=== PATIENT | female | born 1975 | race Caucasian/White ===

== ENCOUNTER 2018-04-05 09:55 | Inpatient (IN) | payer BC, MEDICAID ==
[~2018-04-05] VITALS: Ht 152.4 cm; Wt 79.5 kg
[2018-04-05] MEDS ORDERED: KETOROLAC 30 MG INJ IV STA (11:30)
[2018-04-05] MEDS ORDERED: SOD CHLORIDE 0.9% 1,000 ML IV STA (11:30)
--- NOTE | 2018-04-05 11:34 | EN ---
Date/Time of Note Date/Time of Note DATE: 04/05/18 TIME: 11:27 ER Progress Note Observation Note Subjective: This patient was evaluated by myself in conjunction with the PA. Briefly, this is a 42-year-old female presenting with right upper quadrant pain for a few days. The patient was found to have cholecystitis. Family history: As indicated on the initial history and physical of this ER visit Objective: Vital signs reviewed Const: No apparent distress, well-developed, well-nourished Head: Normocephalic, Atraumatic Eyes: Normal Conjunctiva. ENT: Normal External Ears, Nose and Mouth. Neck: No meningismus. Resp: Symmetric chest wall ramirez, no audible wheezes Cardio: Regular rate Abd: No abdominal distension Skin: No petechiae or rashes Ext: No cyanosis, or edema Neur: Awake. No facial droop. Normal strength and sensation. Assessment: Cholecystitis MDM The patient's presentation warrants further investigation. Previous medical records, if available, were reviewed. LABS The patient's laboratory testing was obtained and reviewed. No emergent treatment was required unless described below. CBC: Leukocytosis, concerning for an infectious etiology. No anemia or thrombocytopenia. CMP: No E/o severe acidosis or alkalosis or renal failure or liver disease or diabetic ketoacidosis Lipase: No E/o pancreatitis IMAGING Imaging and Radiology interpretation reviewed. US GB FINDINGS: Pancreas: The head and body of the pancreas are unremarkable. Tail is obscured by shadowing bowel gas. Liver: Liver demonstrates normal size and echotexture. No parenchymal lesions are identified. Normal directional flow toward the liver is demonstrated in the main portal vein. Gallbladder: Multiple echogenic gallstones, including a non mobile stone within the neck of the gallbladder. The gallbladder wall measures 5 mm thickness. Business Administration Professor reports positive Chisholm's sign. There is trace pericholecystic fluid. Biliary system: No significant dilatation of the intrahepatic or extrahepatic biliary system. Common bile duct measures 4 mm. Right Kidney: Measures 10.6 cm in length. No hydronephrosis, intrarenal calcification or parenchymal lesion. No visible perinephric fluid. IMPRESSION: Cholelithiasis and non mobile stone within the neck of the gallbladder. Mild wall thickening, trace pericholecystic fluid and focal tenderness consistent with acute cholecystitis. Electronically viewed and signed by Physician Xochitl on 04/05/2018 11:01 TREATMENT/DISPOSITION The patient presents for acute cholecystitis. The patient was given Zosyn in the emergency department. The patient does have a leukocytosis, but her vital signs are stable. She does not meet criteria for systemic inflammatory response syndrome. I have low suspicion for endorgan damage. I do not believe the patient is septic and I do not feel that a full septic workup is required. At this time, I feel that the patient requires admission for further evaluation and management. The patient will be admitted to Panel in accordance with the patient's insurance. The patient was accepted by Dr. Henry at 1415PM on 04/05/2018. The on-call general surgeon, Dr. Weaver, was consulted on the case. The patient will be evaluated for likely operative intervention. Please see PA note for further detail. Disclaimer: Inadvertent spelling and grammatical errors are likely due to EHR/dictation software use and do not reflect on the overall quality of patient care. Note that the electronic time recorded on this note does not necessarily reflect the actual time of the patient encounter. JOSEFINA LEWIS MD Apr 05, 2018 11:34
[2018-04-05] MEDS ORDERED: PIPER-TAZO 3.375 GM IV (PMX) 100 ML IVPB ONE (12:00)
[2018-04-05] MEDS ORDERED: ONDANSETRON 4 MG INJ IV PRN (14:30)
[2018-04-05] MEDS ORDERED: ACETAMINOPHEN 325 MG TAB PO PRN (14:30)
[2018-04-05] MEDS ORDERED: morphine 2 MG INJ IV PRN (15:00)
[2018-04-05] MEDS ORDERED: NACL 0.9% 3 ML SYG IV SCH (15:00)
--- NOTE | 2018-04-05 15:11 | ERD ---
ER Documentation Chief Complaint Chief Complaint NAUSEA AND VOMITING, ABD PAIN X2 DAYS HPI 42-year-old female presenting with nausea and vomiting and epigastric abdominal pain times 2 days. Patient has no fevers. She is never had this pain before. Denies any chest pain or shortness of breath. Has not taken medications for symptoms. Medical history: Schizophrenia. Surgical history left eye surgery. NKDA. Social history denies ROS All systems reviewed and are negative except as per history of present illness. Allergies Allergies: Coded Allergies: No Known Allergy (Unverified , 01/31/14) PMhx/Soc Medical and Surgical Hx: pt denies Medical Hx, pt denies Surgical Hx Hx Psychiatric Problems: Yes (UNKNOWN) Hx Alcohol Use: No Hx Substance Use: No Hx Tobacco Use: No FmHx Family History: No diabetes, No coronary disease, No other Physical Exam Vitals Vital Signs Date Temp Pulse Resp B/P (MAP) Pulse Ox O2 O2 Flow FiO2 Time Delivery Rate 04/05/18 98.5 96 18 142/65 100 09:56 (90) Physical Exam GENERAL: The patient is well-appearing, well-nourished, in no acute distress HEENT: Atraumatic. Conjunctivae are pink. Pupils equal, round, and reactive to light. There is no scleral icterus. Tympanic membranes clear bilaterally. Oropharynx clear. NECK: C-spine is soft and supple. There is no meningismus. There is no cervical lymphadenopathy. CHEST: Clear to auscultation bilaterally. There are no rales, wheezes or rhonchi. HEART: Regular rate and rhythm. No murmurs, clicks, rubs or gallops. ABDOMEN: Normal active bowel sounds. No distention. No organomegaly. Tender to palpation in epigastric region. Result Diagram: 04/05/18 1026 04/05/18 1026 Results 24 hrs Laboratory Tests Test 04/05/18 10:15 04/05/18 10:26 04/05/18 10:34 Urine Color YELLOW Urine Clarity SLIGHTLY CLOUDY Urine pH 7.0 Urine Specific [place] 1.018 Urine Ketones TRACE mg/dL Urine Nitrite NEGATIVE mg/dL Urine Bilirubin NEGATIVE mg/dL Urine Urobilinogen NEGATIVE mg/dL Urine Leukocyte Esterase NEGATIVE Jill/ul Urine Microscopic RBC 1 /HPF Urine Microscopic WBC 2 /HPF Urine Squamous Epithelial Cells FEW /HPF Urine Bacteria FEW /HPF Urine Mucus FEW /HPF Urine Hemoglobin NEGATIVE mg/dL Urine Glucose 1+ mg/dL Urine Total Protein NEGATIVE mg/dl White Blood Count 14.9 10^3/ul Red Blood Count 4.54 10^6/ul Hemoglobin 13.3 g/dl Hematocrit 41.0 % Mean Corpuscular Volume 90.3 fl Mean Corpuscular Hemoglobin 29.3 pg Mean Corpuscular 32.4 g/dl Hemoglobin Concent Red Cell Distribution Width 13.3 % Platelet Count 264 10^3/UL Mean Platelet Volume 11.5 fl Immature Granulocytes % 0.500 % Neutrophils % 88.5 % Lymphocytes % 6.9 % Monocytes % 4.0 % Eosinophils % 0.0 % Basophils % 0.1 % Nucleated Red Blood Cells % 0.0 /100WBC Immature Granulocytes # 0.070 10^3/ul Neutrophils # 13.2 10^3/ul Lymphocytes # 1.0 10^3/ul Monocytes # 0.6 10^3/ul Eosinophils # 0.0 10^3/ul Basophils # 0.0 10^3/ul Nucleated Red Blood Cells # 0.0 10^3/ul Sodium Level 143 mmol/L Potassium Level 3.5 mmol/L Chloride Level 105 mmol/L Carbon Dioxide Level 23 mmol/L Anion Gap 15 Blood Urea Nitrogen 15 mg/dl Creatinine 0.60 mg/dl Est Glomerular Filtrat > 60 mL/min Rate mL/min Glucose Level 137 mg/dl Calcium Level 10.2 mg/dl Total Bilirubin 0.2 mg/dl Direct Bilirubin 0.00 mg/dl Indirect Bilirubin 0.2 mg/dl Aspartate Amino 37 IU/L Transf (AST/SGOT) Alanine 25 IU/L Aminotransferase (ALT/SGPT) Alkaline Phosphatase 83 IU/L Total Protein 8.9 g/dl Albumin 5.2 g/dl Globulin 3.70 g/dl Albumin/Globulin Ratio 1.40 Lipase 61 U/L POC Beta HCG, Qualitative NEGATIVE Current Medications Medications Dose Sig/Martin Start Time Status Last (Trade) Ordered Route PRN Stop Time Admin Dose Reason Admin Sodium 1,000 ml @ Q1H STAT 04/05/18 DC 04/05/18 Chloride 1,000 mls/hr IV 11:30 11:40 04/05/18 12:29 Ketorolac 30 mg ONCE STAT 04/05/18 DC 04/05/18 Tromethamine IV 11:30 11:40 (Toradol) 04/05/18 11:31 Piperacillin 100 ml @ ONCE ONCE 04/05/18 DC 04/05/18 Sod/ 200 mls/hr IVPB 12:00 11:40 Tazobactam 04/05/18 12:29 Sod Ondansetron 4 mg BRIDGE ORDER 04/05/18 HCl (Zofran PRN IV 14:30 Inj) NAUSEA/VOMITI 04/06/18 14:29 NG 650 mg ER BRIDGE 04/05/18 Acetaminophen PRN PO 14:30 (Tylenol .MILD PAIN 04/06/18 14:29 Tab) 1-3 OR TEMP Sodium 1,000 ml @ Q8H IV 04/05/18 UNV Chloride 125 mls/hr 15:00 IV Flush 3 ml PER 04/05/18 UNV (NS 3 ml) PROTOCOL IV 15:00 Morphine 2 mg Q4H PRN 04/05/18 UNV Sulfate IV .SEVERE 15:00 (morphine) PAIN 7-10 Piperacillin 100 ml @ 04/05/18 UNV Sod/ 25 mls/hr TID@, 18:00 Tazobactam IVPB Sod Procedures/MDM DIAGNOSTIC IMAGING REPORT Patient: NIDHI HOOK : 1975 Age: 42 Sex: F MR #: [id number] DOS: 04/05/18 1015 Ordering MD: IRMA VILLALPANDO PA-C Location: [facility] Room/Bed: PROCEDURE: Ultrasound gallbladder CLINICAL INDICATION: abdominal pain TECHNIQUE: Manning scale, color flow and Doppler ultrasound images of the abdomen. COMPARISON: None FINDINGS: Pancreas: The head and body of the pancreas are unremarkable. Tail is obscured by shadowing bowel gas. Liver: Liver demonstrates normal size and echotexture. No parenchymal lesions are identified. Normal directional flow toward the liver is demonstrated in the main portal vein. Gallbladder: Multiple echogenic gallstones, including a non mobile stone within the neck of the gallbladder. The gallbladder wall measures 5 mm thickness. [employer] Repairer reports positive Chisholm's sign. There is trace pericholecystic fluid. Biliary system: No significant dilatation of the intrahepatic or extrahepatic biliary system. Common bile duct measures 4 mm. Right Kidney: Measures 10.6 cm in length. No hydronephrosis, intrarenal calcification or parenchymal lesion. No visible perinephric fluid. Additional findings: None IMPRESSION: Cholelithiasis and non mobile stone within the neck of the gallbladder. Mild wall thickening, trace pericholecystic fluid and focal tenderness consistent with acute cholecystitis. ER Course: 1 L normal saline given ED. Toradol given ED. Dr. Nichols help facilitate admission and patient was admitted and will have surgical cons ultation. MDM: 42-year-old female presenting with findings consistent with cholecystitis. Patient will be admitted for higher level of care and surgical consultation. I have low suspicion for other abdominal emergencies including but not limited to choledocholithiasis, pancreatitis or choledocholithiasis. I have low suspicion for bowel obstruction or appendicitis. Patient is admitted for higher level care and surgical consultation. Patient is stable at the time of admission. I have low suspicion for cardiac or pulmonary emergency. Patient understood and complied. All questions answered at discharge PABLO VILLALPANDO PA-C Apr 05, 2018 15:11
--- NOTE | 2018-04-05 15:33 | HP ---
Date/Time of Note Date/Time of Note DATE: 04/05/18 TIME: 15:31 Assessment/Plan VTE Prophylaxis Pharmacological prophylaxis: heparin Lines/Catheters IV Catheter Type (from Nrsg): Saline Lock Assessment/Plan Hospital Course 42 yo female without pmh presenting with cholecystitis - IV zosyn - Fluids - Pain control - Dr Ochoa consulted - NPO for now Result Diagram: 04/05/18 1026 04/05/18 1026 Results 24hrs Laboratory Tests Test 04/05/18 10:15 04/05/18 10:26 04/05/18 10:34 Urine Color YELLOW Urine Clarity SLIGHTLY CLOUDY A Urine pH 7.0 Urine Specific [place] 1.018 Urine Ketones TRACE A Urine Nitrite NEGATIVE Urine Bilirubin NEGATIVE Urine Urobilinogen NEGATIVE Urine Leukocyte Esterase NEGATIVE Urine Microscopic RBC 1 Urine Microscopic WBC 2 Urine Squamous FEW Epithelial Cells Urine Bacteria FEW A Urine Mucus FEW A Urine Hemoglobin NEGATIVE Urine Glucose 1+ H Urine Total Protein NEGATIVE White Blood Count 14.9 H Red Blood Count 4.54 # Hemoglobin 13.3 # Hematocrit 41.0 # Mean Corpuscular Volume 90.3 Mean Corpuscular Hemoglobin 29.3 Mean Corpuscular 32.4 Hemoglobin Concent Red Cell Distribution Width 13.3 Platelet Count 264 Mean Platelet Volume 11.5 H Immature Granulocytes % 0.500 H Neutrophils % 88.5 H Lymphocytes % 6.9 L Monocytes % 4.0 Eosinophils % 0.0 Basophils % 0.1 Nucleated Red Blood Cells % 0.0 Immature Granulocytes # 0.070 H Neutrophils # 13.2 H Lymphocytes # 1.0 Monocytes # 0.6 Eosinophils # 0.0 Basophils # 0.0 Nucleated Red Blood Cells # 0.0 Sodium Level 143 Potassium Level 3.5 Chloride Level 105 Carbon Dioxide Level 23 Anion Gap 15 H Blood Urea Nitrogen 15 Creatinine 0.60 Est Glomerular Filtrat > 60 Rate mL/min Glucose Level 137 Calcium Level 10.2 Total Bilirubin 0.2 Direct Bilirubin 0.00 Indirect Bilirubin 0.2 Aspartate Amino 37 Transf (AST/SGOT) Alanine 25 Aminotransferase (ALT/SGPT) Alkaline Phosphatase 83 Total Protein 8.9 H Albumin 5.2 H Globulin 3.70 H Albumin/Globulin Ratio 1.40 Lipase 61 POC Beta HCG, Qualitative NEGATIVE HPI/ROS Admit Date/Time Admit Date/Time Hx of Present Illness 42 yo female without pmh who presents with two days abdominal pain Patient generally in good health. Over past two days has developed RUQ pain associated with vomiting. Came to ED where imaging shows cholecystitis. Started on zosyn. Given pain control. Currently feels well no complaints PMH/Family/Social Past Medical History Medical History: no pertinent history Medications Current Medications Ondansetron HCl (Zofran Inj) 4 mg BRIDGE ORDER PRN IV NAUSEA/VOMITING; Start 04/05/18 at 14:30; Stop 04/06/18 at 14:29 Acetaminophen (Tylenol Tab) 650 mg ER BRIDGE PRN PO .MILD PAIN 1-3 OR TEMP; Start 04/05/18 at 14:30; Stop 04/06/18 at 14:29 Sodium Chloride 1,000 ml @ 125 mls/hr Q8H IV ; Start 04/05/18 at 15:00 IV Flush (NS 3 ml) 3 ml PER PROTOCOL IV ; Start 04/05/18 at 15:00 Morphine Sulfate (morphine) 2 mg Q4H PRN IV .SEVERE PAIN 7-10; Start 04/05/18 at 15:00 Piperacillin Sod/ Tazobactam Sod 100 ml @ 25 mls/hr TID@02,10,18 IVPB ; Start 04/05/18 at 18:00 Coded Allergies: No Known Allergy (Unverified , 01/31/14) Past Surgical History Past Surgical Hx: no surgical history Family History Significant Family History: no pertinent family hx Social History Alcohol Use: none Smoking Status: Never smoker Drug Use: none Exam/Review of Systems Vital Signs Vitals Vital Signs Date Temp Pulse Resp B/P (MAP) Pulse Ox O2 O2 Flow FiO2 Time Delivery Rate 04/05/18 98.8 83 18 108/61 98 Room Air 15:08 (77) Exam Constitutional: alert, oriented, well developed Psych: no complaints, nl mood/affect Head: normocephalic, atraumatic Eyes: nl conjunctiva, EOMI, nl lids, nl sclera, PERRL ENMT: nl external ears & nose, nl lips & teeth, nl nasal mucosa & septum Neck: supple, non-tender Respiratory: clear to auscultation, normal air movement Cardiovascular: regular rate and rhythm, nl pulses Gastrointestinal: soft, nl liver, spleen, non-tender Musculoskeletal: nl extremities to inspection Extremities: normal pulses Neurological: BUFFET WAITER/WAITRESS II-XII intact, nl mental status, nl speech, nl strength Skin: nl turgor; No rash or lesions Lymph: nl lymph nodes DAVID HOLLEY MD Apr 05, 2018 15:33
[2018-04-05 15:45] VITALS: BP 108/64; PULSE 89; RESP 18
--- NOTE | 2018-04-05 15:45 | NUR ---
PT ADMITTED FROM ER.A,A,OX4. NOT IN ANY ACUTE DISTRESS. THE PLAN OF CARE DISCUSSED W/ THE PT, VERBALIZED UNDERSTANDING. CALL LIGHT IN REACH. PT ENCOURAGED TO CALL FOR ASSISTANCE. WILL CONT. MONITORING. WILL CONT. W/ THE PLAN OF CARE.
[2018-04-05] MEDS: SOD CHLORIDE 0.45% 1,000 ML IV SCH ×2 (16:22→23:00)
[2018-04-05 16:33] VITALS: Ht 152.4 cm; Wt 79.5 kg
--- NOTE | 2018-04-05 17:14 | CONS ---
Assessment/Plan Assessment/Plan Hospital Course (Demo Recall) 1. Symptomatic cholelithiasis with likely cholecystitis: -Discussed surgical option with patient. Patient currently refusing surgery at this time.> We will continue to monitor -\Antibiotics -Diet [id number] low-cholesterol 2. Leukocytosis: -As above 3. Abdominal pain: -Pain management 4. Obesity BMI: 34 -diet and exercise optimization -encourage weight loss 5. Schizophrenia -Psychiatric optimization Thank you. Patient seen and examined in collaboration with Dr. Jeremiah Ochoa. Consultation Date/Type/Reason Admit Date/Time Date of Consultation: Apr 05, 2018 Type of Consult Surgical Reason for Consultation Abdominal pain, cholelithiasis likely cholecystitis Requesting Provider: PABLO VILLALPANDO PA-C Date/Time of Note DATE: 04/05/18 TIME: 17:06 Hx of Present Illness Rachel Sommer is a 42-year-old woman with past medical history of schizophrenia and left eye surgery who presented to the ED with reports of abdominal pain times 2 days. Abdominal pain is predominantly in the right upper quadrant strong and persistent in nature. Aggravating factors include pain with eating. Associated symptoms include nausea with vomiting yellow emesis. She denies fevers, chills, congested cough, chest pain, palpitations, diarrhea, change in bowel or bladder habits, hematochezia, melena, hematemesis, skin or scleral changes. Laboratory findings were significant for leukocytosis. Ultrasound of the abdomen shows cholelithiasis with nonmobile stone within the neck of the gallbladder with mild wall thickening and trace pericholecystic fluid. General surgery was asked to evaluate. 12 point review of systems was performed and is negative except as stated in HPI. Past Medical History Obesity As above Medications Current Medications Ondansetron HCl (Zofran Inj) 4 mg BRIDGE ORDER PRN IV NAUSEA/VOMITING; Start 04/05/18 at 14:30; Stop 04/06/18 at 14:29 Acetaminophen (Tylenol Tab) 650 mg ER BRIDGE PRN PO .MILD PAIN 1-3 OR TEMP; Start 04/05/18 at 14:30; Stop 04/06/18 at 14:29 Sodium Chloride 1,000 ml @ 125 mls/hr Q8H IV Last administered on 04/05/18at 16:22; Admin Dose 125 MLS/HR; Start 04/05/18 at 15:00 IV Flush (NS 3 ml) 3 ml PER PROTOCOL IV ; Start 04/05/18 at 15:00 Morphine Sulfate (morphine) 2 mg Q4H PRN IV .SEVERE PAIN 7-10; Start 04/05/18 at 15:00 Piperacillin Sod/ Tazobactam Sod 100 ml @ 25 mls/hr TID@02,10,18 IVPB ; Start 04/05/18 at 18:00 Allergies: Coded Allergies: No Known Allergy (Unverified , 01/31/14) Past Surgical History As above Family History Significant Family History: no pertinent family hx Social History Alcohol Use: none Smoking Status: Never smoker Drug Use: none Exam/Review of Systems Exam Vitals Vital Signs Date Temp Pulse Resp B/P (MAP) Pulse Ox O2 O2 Flow FiO2 Time Delivery Rate 04/05/18 98.8 83 18 108/61 98 Room Air 15:08 (77) Constitutional: alert, oriented, well developed, obese Psych: nl mood/affect, anxiety (Min) Head: normocephalic, atraumatic Eyes: nl conjunctiva, EOMI, nl lids, nl sclera ENMT: nl external ears & nose, nl lips & teeth, nl nasal mucosa & septum, mucosa pink and moist Neck: supple, non-tender; No jvd Respiratory: normal air movement; No congested cough Cardiovascular: regular rate and rhythm, nl pulses Gastrointestinal: soft, distended (Minimal), tender (Right upper quadrant; negative Chisholm's by palpation); No firm Genitourinary - Female: nl external genitalia Musculoskeletal: nl extremities to inspection, nl gait and stance Extremities: normal pulses Neurological: nl mental status, nl speech, nl strength Skin: No rash or lesions Lymph: nl lymph nodes Results Result Diagram: 04/05/18 1026 04/05/18 1026 Results 24hrs Laboratory Tests Test 04/05/18 10:15 04/05/18 10:26 04/05/18 10:34 Urine Color YELLOW Urine Clarity SLIGHTLY CLOUDY A Urine pH 7.0 Urine Specific [place] 1.018 Urine Ketones TRACE A Urine Nitrite NEGATIVE Urine Bilirubin NEGATIVE Urine Urobilinogen NEGATIVE Urine Leukocyte Esterase NEGATIVE Urine Microscopic RBC 1 Urine Microscopic WBC 2 Urine Squamous FEW Epithelial Cells Urine Bacteria FEW A Urine Mucus FEW A Urine Hemoglobin NEGATIVE Urine Glucose 1+ H Urine Total Protein NEGATIVE White Blood Count 14.9 H Red Blood Count 4.54 # Hemoglobin 13.3 # Hematocrit 41.0 # Mean Corpuscular Volume 90.3 Mean Corpuscular Hemoglobin 29.3 Mean Corpuscular 32.4 Hemoglobin Concent Red Cell Distribution Width 13.3 Platelet Count 264 Mean Platelet Volume 11.5 H Immature Granulocytes % 0.500 H Neutrophils % 88.5 H Lymphocytes % 6.9 L Monocytes % 4.0 Eosinophils % 0.0 Basophils % 0.1 Nucleated Red Blood Cells % 0.0 Immature Granulocytes # 0.070 H Neutrophils # 13.2 H Lymphocytes # 1.0 Monocytes # 0.6 Eosinophils # 0.0 Basophils # 0.0 Nucleated Red Blood Cells # 0.0 Sodium Level 143 Potassium Level 3.5 Chloride Level 105 Carbon Dioxide Level 23 Anion Gap 15 H Blood Urea Nitrogen 15 Creatinine 0.60 Est Glomerular Filtrat > 60 Rate mL/min Glucose Level 137 Calcium Level 10.2 Total Bilirubin 0.2 Direct Bilirubin 0.00 Indirect Bilirubin 0.2 Aspartate Amino 37 Transf (AST/SGOT) Alanine 25 Aminotransferase (ALT/SGPT) Alkaline Phosphatase 83 Total Protein 8.9 H Albumin 5.2 H Globulin 3.70 H Albumin/Globulin Ratio 1.40 Lipase 61 POC Beta HCG, Qualitative NEGATIVE Medications Medication Current Medications Ondansetron HCl (Zofran Inj) 4 mg BRIDGE ORDER PRN IV NAUSEA/VOMITING; Start 04/05/18 at 14:30; Stop 04/06/18 at 14:29 Acetaminophen (Tylenol Tab) 650 mg ER BRIDGE PRN PO .MILD PAIN 1-3 OR TEMP; Start 04/05/18 at 14:30; Stop 04/06/18 at 14:29 Sodium Chloride 1,000 ml @ 125 mls/hr Q8H IV Last administered on 04/05/18at 16:22; Admin Dose 125 MLS/HR; Start 04/05/18 at 15:00 IV Flush (NS 3 ml) 3 ml PER PROTOCOL IV ; Start 04/05/18 at 15:00 Morphine Sulfate (morphine) 2 mg Q4H PRN IV .SEVERE PAIN 7-10; Start 04/05/18 at 15:00 Piperacillin Sod/ Tazobactam Sod 100 ml @ 25 mls/hr TID@02,10,18 IVPB ; Start 04/05/18 at 18:00 NICHOLE LOZANO NP Apr 05, 2018 17:14
[2018-04-05] MEDS: PIPER-TAZO 3.375 GM IV (PMX) 100 ML IVPB SCH (18:16)
--- NOTE | 2018-04-05 18:48 | NUR ---
EOSS: PT'S HEMODYNAMICS AND RESPIR. STATUS ARE STABLE. NO COMPLICATIONS. NO CHANGES IN CONDITION. WILL CONT. MONITORING. WILL CONT. W/ THE PLAN OF CARE.
[2018-04-05 20:26] VITALS: BP 101/61; PULSE 98; RESP 18
[2018-04-06] MEDS: PIPER-TAZO 3.375 GM IV (PMX) 100 ML IVPB SCH ×2 (01:21→10:28)
[2018-04-06 01:49] VITALS: BP 102/58; PULSE 108; RESP 18
[2018-04-06] MEDS: SOD CHLORIDE 0.45% 1,000 ML IV SCH (04:16)
--- NOTE | 2018-04-06 06:26 | NUR ---
EOSS: PATIENT BEEN ASSESSED FOR PAIN. PATIENT DENIES PAIN. TOLERATING CLEAR LIQUIDS. REMAIN IN ZOSYN ANTIBIOTICS AND IVF INFUSING. HOURLY ROUNDING RENDERED. FALL PRECAUTION OBSERVED. CALL LIGHT WITHIN REACH.
[2018-04-06 07:57] VITALS: BP 103/57; PULSE 94; RESP 18
[2018-04-06] MEDS ORDERED: POTASSIUM CHLORIDE (SR) 20 MEQ TAB PO STA (09:28)
[2018-04-06] MEDS ORDERED: METR500T PO (10:19)
[2018-04-06] MEDS ORDERED: CIPR500T4 PO (10:19)
--- NOTE | 2018-04-06 10:22 | PDOCDIS ---
Discharge Instructions CONDITION [id number] Patient Condition: [id number] Good HOME CARE INSTRUCTIONS: [id number] Diet Instructions: [id number] Regular ACTIVITY: [id number] Activity Restrictions: [id number] No Restrictions FOLLOW UP/APPOINTMENTS Follow-up Plan FOLLOW UP WITH YOUR PCP IN 1-2 WEEKS ELI SHERMAN Apr 06, 2018 10:22
[2018-04-06 13:06] VITALS: BP 104/69; PULSE 88; RESP 18
--- NOTE | 2018-04-06 13:36 | PN ---
Date/Time of Note Date/Time of Note DATE: 04/06/18 TIME: 13:32 Assessment/Plan Lines/Catheters IV Catheter Type (from [facility] Peripheral IV Waller in Place (from [facility]): No Assessment/Plan Chief Complaint/Hosp Course 1. Symptomatic cholelithiasis with likely cholecystitis: -Discussed surgical option with patient. Patient currently refusing surgery at this time.> Outpatient follow-up -Antibiotics -Diet [id number] low-cholesterol 2. Leukocytosis: Resolved -As above 3. Abdominal pain: -Pain management 4. Obesity BMI: 34 -diet and exercise optimization -encourage weight loss 5. Schizophrenia -Psychiatric optimization Thank you. Patient seen and examined in collaboration with Dr. Jeremiah Ochoa. Subjective 24 Hr Interval Summary Abdominal pain improved. WBC normalized. Continues to refuse surgical intervention at this time. No fevers, chills, sob, congested cough, cp, palpitations, montero, dizziness, nausea, vomiting, diarrhea, dysuria. Exam/Review of Systems Vital Signs Vitals Vital Signs Date Temp Pulse Resp B/P (MAP) Pulse Ox O2 O2 Flow FiO2 Time Delivery Rate 04/06/18 98.7 88 18 104/69 97 13:06 (81) 04/05/18 Room Air 15:45 Intake and Output 04/05/18 04/05/18 04/06/18 1515:00 23:00 07:00 IntakeIntake Total 1100 ml 450 ml 850 ml BalanceBalance 1100 ml 450 ml 850 ml Exam Free Text/Dictation Constitutional: alert, oriented, well developed, obese Psych: nl mood/affect, anxiety (Min) Head: normocephalic, atraumatic Eyes: nl conjunctiva, EOMI, nl lids, nl sclera ENMT: nl external ears & nose, nl lips & teeth, nl nasal mucosa & septum, mucosa pink and moist Neck: supple, non-tender; No jvd Respiratory: normal air movement; No congested cough Cardiovascular: regular rate and rhythm, nl pulses Gastrointestinal: soft, distended (Minimal), tender (Right upper quadrant; negative Chisholm's by palpation); No firm Genitourinary - Female: nl external genitalia Musculoskeletal: nl extremities to inspection, nl gait and stance Extremities: normal pulses Neurological: nl mental status, nl speech, nl strength Skin: No rash or lesions Lymph: nl lymph nodes Results Result Diagram: 2/11/19 0426 04/06/18 0426 NICHOLE LOZANO NP Apr 06, 2018 13:36
--- NOTE | 2018-04-06 14:30 | NUR ---
DISCHARGE: Patient given discharge instructions after seen by Dr. Moncada with prescriptions for Cipro and Flagyl PO. Instructed patient re: taking them. Patient advised to see primary doctor post-discharge for follow up and instructed patient to revisit the ER once symptoms recur. Patient appeared/stated to be comfortable upon discharge. Patient wants to walk downstairs to meet her discharge ride. IV heplock removed from patient's left AC site without complications, no bleeding, no oozing- bandaide placed to site.
--- NOTE | 2018-04-06 15:02 | DS ---
Date/Time of Note Date/Time of Note DATE: 04/06/18 TIME: 14:59 Discharge Summary Admission/Discharge Info Admit Date/Time Apr 05, 2018 at 14:23 Discharge Date/Time Apr 06, 2018 at 14:30 Discharge Diagnosis 1. Symptomatic cholelithiasis with likely cholecystitis: -Surgery consultation appreciated, Patient is refusing surgery at this time -Status post IV antibiotics -DC with p.o. antibiotics -Pain has resolved -Outpatient follow-up 2. Leukocytosis: Resolved -As above 3. Obesity BMI: 34 -diet and exercise optimization -encourage weight loss Patient Condition: Good Hospital Course Patient is a 42-year-old female with a history of obesity, patient presents with abdominal pain and was found to have cholelithiasis with likely cholecystitis. Patient was seen by surgery and patient did prefer not to have surgery during this admission, patient's leukocytosis and abdominal pain did resolve with IV antibiotics. Patient did understand the risk of not having surgery and understood that she should follow-up with her PCP and a surgeon as an outpatient. Patient was stable for DC, on day of discharge patient's vitals, labs of exam are stable. Home Meds Active Scripts Metronidazole* (Flagyl*) 500 Mg Tablet, 500 MG PO TID for 5 Days, #15 TAB Prov:ELI SHERMAN 04/06/18 Ciprofloxacin Hcl* (Ciprofloxacin Hcl*) 500 Mg Tablet, 500 MG PO BID for 5 Days, #10 TAB Prov:ELI SHERMAN 04/06/18 Follow-up Plan FOLLOW UP WITH YOUR PCP IN 1-2 WEEKS Primary Care Provider Care Physician No Primary Time spent on discharge: > 30 minutes ELI SHERMAN Apr 06, 2018 15:02
== END 2018-04-06 14:30 | disposition home or self-care (01) | DRG 446 ==
LOC: FTE 09:55 → MS1 14:23
PROVIDERS: ADMIT Internal Medicine; ATTEND Internal Medicine
DX: K80.10 Calculus of gallbladder with chronic cholecystitis without obstruction (principal); Z53.29 Procedure and treatment not carried out because of patient's decision for other reasons; E66.9 Obesity, unspecified; Z68.34 Body mass index [BMI] 34.0-34.9, adult
CPT/HCPCS: 36415; 76705; 80053; 81001; 81003; 81025; 83036; 83690; 85025; 96365; 96375; J1885; J2270; J2543; J7030